=== PATIENT | male | born 1975 | race American Indian/Alaskan Native ===

== ENCOUNTER 2017-03-23 23:31 | Emergency (ER) | payer OTHER ==
[2017-03-24 00:10] VITALS: RESP 18; TEMP 98.3; O2SAT 100
--- NOTE | 2017-03-24 00:50 | ED PDOC ---
Arrival/HPI <Micky Forrest - Last Filed: 03/24/17 03:16> - General Historian: Patient EM Caveat: Acuity of Condition - History of Present Illness Time/Duration: Prior to Arrival Symptom Onset: Sudden Symptom Course: Unchanged Quality: Pressure Severity Level: Mild Activities at Onset: Other (injury s/p fall) Context: Standing, Walking <Virgen Dao - Last Filed: 03/24/17 11:15> - General Chief Complaint: Abnormal Skin Integrity Time Seen by Provider: 03/24/17 00:38 - History of Present Illness Narrative History of Present Illness (Text): 03/24/17 00:45 Pt is a 41 yo M who presents with left lower eye laceration x 1 day. Pt reports that he was walking home after work and while talking on his phone,tripped and fell to the ground, landing on his face. He reports that he tried to get up to continue talking on the phone then stumbled again and realized he was bleeding from the left side of his face. Denies LOC, LOPEZ, seizures, change in vision, or dizziness. (Virgen Dao) Past Medical History - Provider Review Nursing Documentation Reviewed: Yes - Travel History Have you recently traveled outside [place] w/in the past 3 mons?: No - Past History Past History: No Previous - Infectious Disease Hx of Infectious Diseases: None - Tetanus Immunization Tetanus Immunization: Unknown - Psychiatric Hx Substance Use: No <Virgen Dao - Last Filed: 03/24/17 11:15> Family/Social History - Physician Review Nursing Documentation Reviewed: Yes Family/Social History: No Known Family HX Smoking Status: y Hx Alcohol Use: Yes Frequency of alcohol use: Daily Hx Substance Use: No <Virgen Dao - Last Filed: 03/24/17 11:15> Allergies/Home Meds <Micky Forrest - Last Filed: 03/24/17 03:16> <Virgen Dao - Last Filed: 03/24/17 11:15> Allergies/Adverse Reactions: Allergies No Known Allergies Allergy (Verified 03/23/17 23:42) Review of Systems - Review of Systems Constitutional: Normal Eyes: Normal, Eye Pain (left eye) ENT: Normal Respiratory: Normal Cardiovascular: Normal Gastrointestinal: Normal Genitourinary Male: Normal Musculoskeletal: Normal Skin: Normal Neurological: Normal Endocrine: Normal Hemo/Lymphatic: Normal Psychiatric: Normal <Virgen Dao - Last Filed: 03/24/17 11:15> Physical Exam - Physical Exam Physical Exam Limitations: Intoxication Vital Signs Reviewed: Yes Temperature: Afebrile Blood Pressure: Normal Pulse: Regular Respiratory Rate: Normal Appearance: Positive for: Uncomfortable Pain Distress: Mild Mental Status: Positive for: Alert and Oriented X 3 - Systems Exam Head: Present: Normocephalic, Contusion (left eye, infraorbital), Abrasion ( left infraorbital), Laceration (left infraorbital puncture) Pupils: Present: PERRL Extroacular Muscles: Present: EOMI Conjunctiva: Present: Normal Mouth: Present: Moist Mucous Membranes Neck: Present: Normal Range of Motion Respiratory/Chest: Present: Clear to Auscultation, Good Air Exchange. No: Respiratory Distress, Accessory Muscle Use Cardiovascular: Present: Regular Rate and Rhythm, Normal S1, S2. No: Murmurs Abdomen: Present: Normal Bowel Sounds. No: Tenderness, Distention, Peritoneal Signs Back: Present: Normal Inspection Upper Extremity: Present: Normal Inspection. No: Cyanosis, Edema Lower Extremity: Present: Normal Inspection. No: Edema Neurological: Present: GCS=15, CN II-XII Intact, Speech Normal Skin: Present: Warm, Dry, Normal Color. No: Rashes Psychiatric: Present: Alert, Oriented x 3, Normal Insight, Normal Concentration <FelibertoVirgen Klein - Last Filed: 03/24/17 11:15> Vital Signs Temp Pulse Resp BP Pulse Ox 03/24/17 03:44 77 18 125/71 100 03/24/17 02:00 78 18 120/68 100 03/24/17 00:09 98.3 F 83 18 123/71 100 Medical Decision Making <Micky Forrest - Last Filed: 03/24/17 03:16> - Lab Interpretations I have reviewed the lab results: Yes <Virgen Dao - Last Filed: 03/24/17 11:15> ED Course and Treatment: 03/24/17 00:53 Pt is a 41 yo M who presents with left lower eye laceration x 1 day. On PE, there is a infraorbital abrasion, proximal to the lower eye margin; ecchymosis of the left zygomatic arch; small 1-2mm x 2 mm puncture wound 2 cm infraorbital. Plan: 1. Maxillofacial CT to r/o fx 2. suture required for puncture wound 3. patch for eye 4. NSAID and ice for home care 03/24/17 03:[address] for fractures Will dispo home with instructions for wound care; VSS at discharge and ambulated well out of the ER (Virgen Dao) - RAD Interpretation Narrative RAD Interpretations (Text): 03/24/17 03:03 IMPRESSION: 1. Submandibular left facial and perimandibular subcutaneous soft tissue infiltration representing soft tissue swelling related to contusion versus hematoma/hemorrhage in the setting of acute trauma versus cellulitis. No radiopaque foreign body is identified. (Virgen Dao) Radiology Orders: 03/24/17 00:46 MAXILLOFACIAL W/O CONTRAST [CT] Stat - Procedure PROCEDURE NOTE (Text): 03/24/17 02:14 Left infraorbital area was washed and draped; and 18g needle syringe of lidocaine 1% was used to anesthetize the lacerations site. 6.0 Ethilon was used to apply one suture to the laceration. Pt tolerated the procedure well. Minimal bleeding from the site. (Virgen Dao) - PA / [employer] / Resident Statement / has reviewed & agrees with the documentation as recorded. <Micky Forrest - Last Filed: 03/24/17 03:16> Disposition/Present on Arrival <Micky Forrest - Last Filed: 03/24/17 03:16> - Present on Arrival Any Indicators Present on Arrival: Yes History of DVT/PE: No History of Uncontrolled Diabetes: No Urinary Catheter: No History of Decub. Ulcer: No History Surgical Site Infection Following: None - Disposition Have Diagnosis and Disposition been Completed?: Yes Disposition Time: 02:35 Patient Plan: Discharge <Virgen Dao - Last Filed: 03/24/17 11:15> - Disposition Diagnosis: Facial injury, Laceration Disposition: HOME/ ROUTINE Condition: STABLE Discharge Instructions (ExitCare): Care For Your Stitches (ED), Facial Laceration (ED) Additional Instructions: Dear Patient, You have been treated for a laceration and bruise to your face. Please follow the handouts given for care of your injury and pain management. If you experience severe fever, pain, chest pain or shortness of breath of any other alarming symptoms, return to the emergency room immediately. Please follow up with your Primary Doctor in less than a week. All the best in your recovery. Prescriptions: Ibuprofen [Motrin Tab] 600 mg PO Q6 5 Days #20 tab Forms: [employer] ([place])
--- NOTE | 2017-03-24 02:59 | CT ---
EXAM: CT Maxillofacial and mandible Without Intravenous Contrast CLINICAL HISTORY: 41 years old, male; Injury or trauma; Fall; Initial encounter; Laceration; Orbit/periorbital; Left; Without residual foreign body TECHNIQUE: Axial computed tomography images of the face and mandible without intravenous contrast. All CT scans at this facility use one or more dose reduction techniques, viz.: automated exposure control; ma/kV adjustment per patient size (including targeted exams where dose is matched to indication; i.e. head); or iterative reconstruction technique. 1220 images are submitted.Sagittal , axial and coronal MPR reformatted images are submitted bone and soft tissue windows. CT maxillofacial with mandible COMPARISON: No relevant prior studies available. FINDINGS: Bones/joints: The a.c. joints are seen on the ham doctor film and are not evaluated due to positioning. Correlation with clinical examination may be helpful if patient demonstrate pain or deformity in that region. Right-sided cervical scoliosis. No acute fracture. Soft tissues: Submandibular left facial and perimandibular subcutaneous soft tissue infiltration representing soft tissue swelling related to contusion versus hemorrhage versus cellulitis. Lymph nodes: Bilateral cervical chain lymph nodes. Orbits: Unremarkable. Sinuses: Moderate patchy sinus disease No air-fluid levels. Dental: There are multiple areas lesions involving the maxillary and mandibular teeth. There is right maxillary premolar carious lesion with periapical abscess. There is left mandibular molar destruction of the crown with caries and retained roots with periapical abscess. IMPRESSION: 1. Submandibular left facial and perimandibular subcutaneous soft tissue infiltration representing soft tissue swelling related to contusion versus hematoma/hemorrhage in the setting of acute trauma versus cellulitis. No radiopaque foreign body is identified. 2. Extensive dental disease as described. Nonemergent evaluation may be helpful.
[2017-03-24 03:58] VITALS: BP 125/71; PULSE 77
== END 2017-03-24 03:44 | disposition home or self-care (01) ==
LOC: ED 23:31
DX: S05.32XA Ocular laceration without prolapse or loss of intraocular tissue, left eye, initial encounter (principal); S09.93XA Unspecified injury of face, initial encounter; W01.0XXA Fall on same level from slipping, tripping and stumbling without subsequent striking against object, initial encounter; Y93.01 Activity, walking, marching and hiking